=== PATIENT | male | born 1985 | race Caucasian/White ===

== ENCOUNTER 2016-05-30 19:46 | Emergency (ER) | payer OTHER ==
[2016-05-30 20:12] VITALS: BP 139/92; PULSE 79; RESP 16; TEMP 98.4; O2SAT 93
--- NOTE | 2016-05-30 20:43 | DX ---
3 Views Right Shoulder. Clinical Indications: Pain following trauma. Findings: The humeral head is normally located in the glenoid fossa. No fracture is identified. The bone alignment is normal. Impression: Negative for fracture.
--- NOTE | 2016-05-30 20:44 | UCPHY ---
H & P Time Seen by Provider: 05/30/16 20:07 Patient Type: New HPI/ROS: HPI Right shoulder injury. 30-year-old male by private vehicle. He presents to Urgent Care complaining of right shoulder pain. He reports that he fell while skiing and landed on his right shoulder at 1:30 p.m. today. He has been able to range the shoulder in flexion and extension but states that it is generally sore. He denies hitting his head. No loss of consciousness. He denies any other injury. ROS: Constitutional: No fever, no chills. No weakness. Musculoskeletal: No back pain. No neck pain. No extremity pain other than noted. Skin: No rashes. No lacerations or abrasions. Neurological: No headache. No focal weakness or altered sensation. Past medical history: Denies. Social history: Here by himself. Physical Exam: General Appearance: Alert, no distress. This patient is responding to questions appropriately and in full sentences. This patient appears well- hydrated and well-nourished. Eyes: Pupils equal and round no pallor or injection. No lid edema, erythema or injection. Right shoulder exam: Symmetric in comparison to the left shoulder. No significant tenderness over the AC joint. The glenohumeral joint ranges without significant pain or impingement in flexion, extension, AB duction and rotation. He is able to stretch his right arm and hand up above his head without difficulty. The axillary nerve distribution is intact. The right upper extremity is neurovascularly intact. There is no tenderness on palpation over the right clavicle. Neurological: Motor sensory function is grossly intact. Cranial nerves are normal. Gait is normal. Skin: Warm and dry, no rashes. Musculoskeletal: Neck is supple and nontender. Extremities are symmetrical. All joints range without pain or impingement except noted above. Psychiatric: No agitation. No depression. Database: EKG: Imaging: Right shoulder x-ray series: Negative for fracture, subluxation, dislocation. Interpreted by me. Procedures: Emergency department course: Patient sent for x-rays from triage. On re-evaluation at 8:40 p.m., x-rays were discussed with him. I will put him on high-dose ibuprofen for 3 days. He will also be sent home with a take-home pack of Vicodin for pain control tonight. He has been instructed to follow up with his primary care physician or medical care evaluation specialist as needed in 2-3 days. Return to Urgent Care precautions have been discussed with him. All of his questions were answered. He was discharged in good condition. Differential Diagnosis: The differential diagnosis on this patient includes but is not limited to right shoulder sprain. Fracture, subluxation, dislocation, AC joint dislocation unlikely. This represents a partial list of diagnoses considered. These considerations are based on history, physical exam, past history, reassessment and diagnostic testing. Smoking Status: Never smoked Constitutional: Initial Vital Signs Temperature (C) 36.9 C 05/30/16 20:10 Heart Rate 79 05/30/16 20:10 Respiratory Rate 16 05/30/16 20:10 Blood Pressure 139/92 H 05/30/16 20:10 O2 Sat (%) 93 05/30/16 20:10 O2 Delivery Mode Room Air Allergies/Adverse Reactions: No Known Allergies Allergy (Unverified 05/30/16 20:09) Home Medications: Medication Instructions Recorded NK [No Known Home Meds] 05/30/16 MDM/Departure - Depart Disposition: Home, Routine, Self-Care Clinical Impression: Sprain of right shoulder Condition: Good Instructions: Shoulder Sprain (ED) Additional Instructions: Read and follow provided instructions. Follow-up with your primary care physician or medical care evaluation specialist in 2-3 days for re-evaluation. Ibuprofen dosin mg every 6 hours with meals for the next 3 days only. [place]/Percocet dosin-2 every 4-6 hours for [address] not drive on this medication. Return to the emergency department for worsening pain, swelling, discoloration, loss of sensation or other serious concerns. Referrals: NONE *PRIMARY CARE P,. [Primary Care Provider] - As per Instructions - PQRS PQRS Measurement: Not applicable.
[2016-05-30] MEDS ORDERED: HYDROCOD/APAP 5/325 PREPACK#6 BTL TAKEHOME ONE (20:45)
== END 2016-05-30 20:55 | disposition home or self-care (01) ==
LOC: CED 19:46
DX: S43.401A Unspecified sprain of right shoulder joint, initial encounter (principal); V00.321A Fall from snow-skis, initial encounter; Y93.23 Activity, snow (alpine) (downhill) skiing, snowboarding, sledding, tobogganing and snow tubing
CPT/HCPCS: 73030-PO; 99203-PO; G0463-PO

== ENCOUNTER → 2017-05-03 | Outpatient (CLI) | payer OTHER | LOC: FIMAGING 12:42 | PROVIDERS: ATTEND Specialist | DX: J45.990 Exercise induced bronchospasm (principal) ==